=== PATIENT | female | born 1965 | race Caucasian/White ===

== ENCOUNTER 2018-12-13 14:31 | Emergency (ER) | payer OTHER ==
[2018-12-13 14:41] VITALS: BP 130/73
--- NOTE | 2018-12-13 14:42 | UC ---
Throat Pain/Nasal Charlie HPI - HPI Summary HPI Summary: 53 yo female presents with sinus/headache symptoms. She tells me that since September she has had sinus congestion and a runny nose. Last night she developed a unilateral right sided "migraine" that causes her to have wavy blurry vision in her right eye and decreased vision. She took tylenol and headache improved, but since that time her vision has not improved. She is having right sided maxillary pain. She has been taking sudafed and using a saline nasal spray with little change in her symptoms. She has a history of, self diagnosed, migraines that she tells me are usually bilateral headaches and bilateral wavy blurry vision changes that last <4-5 hours and have always resolved with tylenol. Last episode was 2-3 years ago. She smokes daily. Denies fever, chills, sore throat, cough, SOB, chest pain, abdominal pain, n/v, dysuria, back pain, numbness, or tingling. - History of Current Complaint Chief Complaint: UCEye Stated Complaint: SINUS CONGESTION, AND EYE IRRITATION Hx Obtained From: Patient Onset/Duration: Sudden Onset Severity: Moderate Pain Intensity: 6 Pain Scale Used: 0-10 Numeric - Allergies/Home Medications Allergies/Adverse Reactions: Allergies Allergy/AdvReac Type Severity Reaction Status Date / Time sulfamethoxazole Allergy Hives Verified 12/13/18 14:41 [From Bactrim] trimethoprim [From Bactrim] Allergy Hives Verified 12/13/18 14:41 Home Medications: Home Medications Acetaminophen [Pain Reliever] 1 tab PO ONCE PRN 12/13/18 [History Confirmed 08/24] Cholecalciferol (Vitamin D3) [Vitamin D3] 1 tab PO DAILY 12/13/18 [History Confirmed 12/13/18] Multivitamin [Multivitamins] 1 tab PO DAILY 12/13/18 [History Confirmed 12/13/18 ] Pseudoephedrine HCl [Nasal Decongestant] 1 tab PO DAILY PRN 12/13/18 [History Confirmed 12/13/18] Sodium Chloride [Saline Nasal [place]] 1 spray INH DAILY PRN 12/13/18 [History Confirmed 12/13/18] PMH/Surg Hx/FS Hx/Imm Hx - Additional Past Medical History Additional PMH: Breast mass - benign - Surgical History Surgical History: Yes Surgery Procedure, Year, and Place: eye surgeries - bilateral cataracts, lense implants - Family History Known Family History: Positive: None - Social History Lives: With Family Alcohol Use: Occasionally Substance Use Type: None Smoking Status (MU): Heavy Every Day Tobacco Smoker Amount Used/How Often: 1ppd Household Exposure Type: Cigarettes Review of Systems All Other Systems Reviewed And Are Negative: No Constitutional: Positive: Negative Skin: Positive: Negative Eyes: Positive: Drainage, Eye Redness ENT: Positive: Nasal Discharge, Sinus Pain/Tenderness Respiratory: Positive: Negative Cardiovascular: Positive: Negative Gastrointestinal: Positive: Negative Genitourinary: Positive: Negative Motor: Positive: Negative Neurovascular: Positive: Negative Musculoskeletal: Positive: Negative Neurological: Positive: Headache Psychological: Positive: Negative Physical Exam - Summary Physical Exam Summary: GENERAL: NAD. WDWN. No pain distress. SKIN: No rashes, sores, ulcers, masses, lesions. HEENT: Head: AT/NC. No raccoon eyes or battles sign. Eyes: PERRLA. EOM intact, but pain in right eye with movement. Conjunctiva clear without inflammation or discharge. Ears: Hearing grossly normal. TMs intact, no bulging, erythema, or edema. No hemotympanum Nose: Nasal mucosa pink and moist without erythema or drainage. Mild TTP b/l maxillary sinuses. Throat: Posterior oropharynx without exudates, erythema, or tonsillar enlargement. Uvula midline. NECK: Supple. Nontender. FROM CHEST: CTAB. No r/r/w. No accessory muscle use. Breathing comfortably and in no distress. CV: RRR. Pulses intact. Brisk cap refill. ABDOMEN: Soft. NTTP. Bowel sounds present MSK: FROM in B/L UEs and LEs with symmetric strength. NEURO: A&Ox3. 3 word recall, remote, recent memory, ability to follow 2-step directions, and attention intact. CN: II: Peripheral brooke intact. Vision normal. III, IV, : EOMI. No nystagmus. PERRLA. V: Sensations intact and symmetric. Opens mouth and clenches teeth. VII: No facial asymmetry. Forehead wrinkles. Grins, shuts eyes, frowns, puffs cheeks. VIII: Hearing intact to finger rub. IX, X: Swallows and coughs. Uvula midline. XI: Shrugs shoulders. Turns head against resistance. XII: No tongue deviation [id number] are intact. Gait with normal base. Romberg: maintains balance, no pronator drift. Normal speech. No facial drooping. PSYCH: Age appropriate behavior. Triage Information Reviewed: Yes Vital Signs: Initial Vital Signs Temp 97.3 F 12/13/18 14:37 Pulse 86 12/13/18 14:37 Resp 18 12/13/18 14:37 BP 130/73 12/13/18 14:37 Pulse Ox 100 12/13/18 14:37 Vital Signs Reviewed: Yes Throat Pain/Nasal Course/Dx - Course Course Of Treatment: Visual acuity 20/50 in right eye and 20/30 in left eye. Pt states her right eye is usually her "good" eye. Given her headache with persistent vision loss, I discussed the case with Dr. Cramer, who also examined the pt. We then discussed an assessment and plan. Dr. Cramer recommends pt see her eye doctor as symptoms are not consistent with conjunctivitis or sinusitis as pt believes, Dr. Nunes today. I called Dr. Nunes' s office and they will see her now. Discussed with pt and she will go there now for further eval. - Differential Dx/Diagnosis Provider Diagnosis: Headache, Blurry vision, Eye pain Discharge ED - Sign-Out/Discharge Documenting (check all that apply): Patient Departure All imaging exams completed and their final reports reviewed: No Studies - Discharge Plan Condition: Stable Disposition: HOME Referrals: Janette Nevarez MD [Primary Care Provider] - Khurram Nunes MD [Medical Doctor] - Additional Instructions: If you develop a fever, shortness of breath, chest pain, new or worsening symptoms - please call your PCP or go to the ED immediately. Your symptoms do not seem consistent with pink eye or sinusitis. I contacted Dr. Nunes's office and they will see you now for further evaluation of your eye pain and vision change. Please go there. - Billing Disposition and Condition Condition: STABLE Disposition: Home
== END 2018-12-13 15:36 | disposition home or self-care (01) ==
LOC: UCEAST 14:31
DX: R51 Headache (principal); H57.11 Ocular pain, right eye; H53.8 Other visual disturbances; F17.210 Nicotine dependence, cigarettes, uncomplicated; N63.0 Unspecified lump in unspecified breast; R09.81 Nasal congestion; R09.89 Other specified symptoms and signs involving the circulatory and respiratory systems; Z88.2 Allergy status to sulfonamides
CPT/HCPCS: 99212; G0463